=== PATIENT | male | born 1965 | race Caucasian/White ===

== ENCOUNTER 2017-04-08 08:13 | Day surgery (SDC) | payer OTHER ==
[~2017-04-08 08:13] MED LIST: Buffered Lidocaine 0.9% SYRIN* 5 ML/SYR SYRINGE INTRADERM ONE; Famotidine IV* 10 MG/ML 2 ML (20 mg) IV ONE; Morphine INJ* 2 MG/ML 1 ML SYRINGE IV PRN; PROCHLORPERAZINE INJ 5 MG/ML 2 ML VIAL IV PRN; Scopolamine 1.5 mg* PATCH TRANSDERM PRN; fentaNYL* 50 MCG/ML 2 ML VIAL (100 MCG VIAL) IV PRN; oxyCODONE/Acetamin 5/325 MG* TAB PO PRN
[2017-04-08] MEDS ORDERED: Famotidine IV* 10 MG/ML 2 ML (20 mg) ONE (08:31)
[2017-04-08] MEDS ORDERED: Buffered Lidocaine 0.9% SYRIN* 5 ML/SYR SYRINGE ONE (08:32)
[2017-04-08] MEDS ORDERED: Oxymetazoline 0.05% NASAL SPR* 15 ML BTL ONE ×2 (08:33→09:22)
[2017-04-08] MEDS ORDERED: Midazolam* 1 MG/ML 5 ML VIAL (5 MG) ONE (09:03)
[2017-04-08] MEDS ORDERED: fentaNYL* 50 MCG/ML 2 ML VIAL (100 MCG VIAL) ONE (09:03)
[2017-04-08] MEDS ORDERED: KETAMINE HCL* 50 MG/ML 10 ML VIAL ONE (09:03)
[2017-04-08] MEDS ORDERED: Bacitracin OINTMENT* 1 TUBE ONE (09:23)
[2017-04-08] MEDS ORDERED: Lidocaine 4% TOPICAL* 50 ML TOP.SOLN ONE (09:23)
[2017-04-08] MEDS ORDERED: Lidocaine 1.5% EPI 1:200,000* 30 ML SDV ONE (09:23)
[2017-04-08] MEDS ORDERED: Lidocaine 2% PF * 5 ML VIAL ONE (11:05)
[2017-04-08] MEDS ORDERED: Dexamethasone IV* 4 MG/ML 1 ML (4 MG) ONE (11:05)
[2017-04-08] MEDS ORDERED: PROCHLORPERAZINE INJ 5 MG/ML 2 ML VIAL ONE (11:05)
[2017-04-08] MEDS ORDERED: Ondansetron INJ* 2 MG/ML VIAL ONE (11:05)
[2017-04-08] MEDS ORDERED: Propofol* 10 MG/ML 20 ML BTL IV PUSH ONE (11:05)
[2017-04-08 13:33] VITALS: BP 141/89
--- NOTE | 2017-04-09 00:25 | OP ---
DATE OF OPERATION: 04/08/17 - [facility] DATE OF : 63 SURGEON: Cosme Wall MD MAINTENANCE REPAIRMAN: None. ANESTHESIOLOGIST: Gt Rivas MD ANESTHESIA: General. PRE-OP DIAGNOSES: Deviated nasal septum and inferior turbinate hypertrophy. POST-OP DIAGNOSES: Deviated nasal septum and inferior turbinate hypertrophy. OPERATIVE PROCEDURE: Septoplasty with outfracture and cautery of the inferior turbinates. ESTIMATED BLOOD LOSS: Approximately 50 cc. SPECIMENS: None. Septal cartilage and bone were discarded. INDICATION: This is a 52-year-old male who presents for elective septoplasty and bilateral turbinate reduction. DESCRIPTION OF PROCEDURE: He was brought into the operating room, general anesthesia was induced and LMA was placed. The patient was then draped and a time-out was performed. 1% lidocaine with epinephrine was infiltrated into both sides of the nasal septum as well as the columella and both inferior turbinates. Nose was packed with 4% lidocaine soaked pledgets. The patient had been previously decongested in the holding area with Afrin. Once adequate time had been allotted for vasoconstriction, the procedure was begun. A left hemitransfixion incision was made with a #15 blade. A left sided mucoperichondrial flap was then elevated. There was a septal spur present inferiorly on the left and there was generalized leftward deflection of the majority of the quadrangular cartilage of the septum into the right nasal cavity. After the left-sided mucoperichondrial flap was elevated, a vertical incision was then made through the quadrangular cartilage approximately 6 mm posterior to the hemitransfixion incision. This enabled access to the right mucoperichondrial space and a mucoperichondrial flap was elevated on the right side. With the flaps elevated, a Arabella swivel knife was brought into the field. A large piece of septal cartilage was removed intact. This was placed in saline, kept moist for subsequent use to reconstruct the septum. A combination of Thru-Cutting double action rongeur as well as double action scissor and a 4-mm osteotome were used to resect the deviated portions of the septal cartilage and bone including the inferiorly based septal spur. Once this was complete, there was a small, but significant bleeder on the remnant of the maxillary crest, this was ultimately controlled with suction Bovie Cautery. The initial piece of quadrangle cartilage that was removed was morselized and used to reconstruct the septum. This was placed between the mucoperichondrial flaps and sutured in position with chromic. The hemitransfixion incision was then closed with chromic. The inferior turbinates were infractured, approximately 3 passes were made through each inferior turbinate using the Privatext bipolar device. The turbinates were then outfractured. Septal splints were then placed and secured with a 5-0 Prolene. A drip pad was applied. The patient was then returned to the care of the anesthesiologist, extubated, and delivered to the PACU in stable condition. [id number]/[facility] #: [id number] JAMISON
[2017-04-11] MEDS ORDERED: Scopolomine PATCH Remove* 1 NOTE MISC PATCH OFF ONE (06:12)
== END 2017-04-08 13:20 | disposition home or self-care (01) ==
LOC: OR 08:13
PROVIDERS: ATTEND Otolaryngology
DX: J34.2 Deviated nasal septum (principal); J34.3 Hypertrophy of nasal turbinates
CPT/HCPCS: A9270-GY; J0780; J1100; J2250; J2405; J2704; J3010